=== PATIENT | male | born 2000 | race Caucasian/White ===

== ENCOUNTER 2022-10-14 21:03 | Emergency (ER) | payer OTHER ==
[~2022-10-14] VITALS: Ht 180.3 cm; Wt 79.4 kg
[2022-10-14 21:08] VITALS: BP 148/85
== END 2022-10-15 01:25 | disposition home or self-care (01) ==
LOC: ER 21:03
DX: S61.210A Laceration without foreign body of right index finger without damage to nail, initial encounter (principal); W22.8XXA Striking against or struck by other objects, initial encounter
CPT/HCPCS: 12001; 73130; 99283-25